=== PATIENT | female | born 1980 | race Two or more races ===

== ENCOUNTER 2024-01-26 20:18 | Emergency (ER) | payer MEDICAID, OTHER ==
[~2024-01-26] VITALS: Ht 170.2 cm; Wt 134.0 kg
[2024-01-26 23:39] VITALS: BP 149/104; TEMP 92.1
[2024-01-26 23:40] VITALS: PULSE 66; RESP 18; O2SAT 97
== END 2024-01-26 23:45 | disposition home or self-care (01) ==
LOC: ER 20:18
DX: S80.01XA Contusion of right knee, initial encounter (principal); E66.01 Morbid (severe) obesity due to excess calories; Z68.42 Body mass index [BMI] 45.0-49.9, adult; Z91.013 Allergy to seafood; V89.2XXA Person injured in unspecified motor-vehicle accident, traffic, initial encounter; Y93.89 Activity, other specified; Y92.89 Other specified places as the place of occurrence of the external cause; Y99.8 Other external cause status
CPT/HCPCS: 73562